=== PATIENT | male | born 1980 | race Caucasian/White ===

== ENCOUNTER 2022-09-22 13:34 | Inpatient (IN) | payer MEDICAID, SELFPAY ==
[2022-09-22 13:35] VITALS: BP 119/88; PULSE 78; RESP 16; TEMP 37; O2SAT 98; BMI 31.5
--- NOTE | 2022-09-22 14:20 | CM.ED ---
ANDREA Note Referral Source: Case Find Referral Reason: RAFFAELE MENDEZ met with patient and introduced herself and role as [facility] Natural Resources Specialist. SW inquired about patient's desire for the detox program as well as his knowledge of the program. Patient reported he was encouraged to come to our facility by his counselor to detox from alcohol and reported his last drink was earlier in the day. SW reviewed rules of the [facility] program including personal items being locked up and no visitors permitted. ANDREA stated he would be in the detox program for about three days and would meet with Azam the addiction therapist to discuss aftercare planning. ANDREA also explained he would be signing a contract with his nurse reviewing and agreeing to the rules of the detox program. Patient stated he understood and agreed to rules, explaining he would do anything he needed to do to get help. No other needs voiced at this time. ANDREA remains available if other needs arise. ANDREA informed Azam of the new [facility] patient. Plan: RAFFAELE Wells MSW, ADELA
[2022-09-22 14:35] VITALS: RESP 15
--- NOTE | 2022-09-22 14:36 | EX.ED.SAOD ---
HPI History of Present Illness Chief Complaint: Substance Abuse Narrative Narrative: 42-year-old male presenting for alcohol detox. He states he has been in recovery from alcohol for several months. [facility] He states he saw them today and they actually drove him here to [place] for detox from alcohol. Patient states that about 2 weeks ago he was having an anxiety attack and ran downstairs where he was living and nobody was home. He states he drove himself directly to the store and bought beer. He states that he has been drinking about 40-60 beers daily. He states he is not sleeping very much and he has a history of insomnia. He states he supposed to take Seroquel for this. He has Ativan as needed as needed. He also takes Paxil. Patient states that he does have history of withdrawal symptoms as well as withdrawal seizure. He currently is stating that he is withdrawing but he states he is hungry and thirsty. [facility] Medical History (Updated 09/22/22 @ 16:33 by Jeannie Reinoso) Anxiety Depression Seizures Smoker Umbilical hernia Home Medications lorazepam 2 mg tablet 2 mg PO DAILY PRN PRN mood 09/22/22 [History Last Taken Unknown] paroxetine HCl 30 mg tablet 30 mg PO DAILY mood 09/22/22 [History Last Taken Unknown] quetiapine 100 mg tablet 100 mg PO QHS sleep 09/22/22 [History Last Taken Unknown] Allergy/AdvReac Type Severity Reaction Status Date / Time No Known Allergies Allergy Verified 09/22/22 13:38 Social History Smoking Status: Current every day smoker tobacco type: cigarettes ROS ROS ED Constitutional Constitutional ED: Denies chills, fever(s) or sweats Eyes Eyes: Denies blurry vision or change in vision ENT ENT ED: Denies ear pain or sore throat Cardiovascular Cardiovascular: Denies chest pain, palpitations or racing heartbeat Respiratory/Chest Respiratory/Chest: Denies cough, dyspnea or sputum Gastrointestinal Gastrointestinal: Denies abdominal pain, constipation, diarrhea, nausea or vomiting Genitourinary Genitourinary ED: Denies dysuria, hematuria or urinary frequency Musculoskeletal Musculoskeletal: Denies arthralgias, myalgias or neck pain Integumentary Denies abscess, Abrasions or rash Neurologic Neurologic: Denies headache(s), paresthesias or weakness Psychiatric Psychiatric: Reports anxiety; Denies depression, suicidal ideation or suicidal thoughts Endocrine Endocrinology: Denies polydipsia or polyuria EXAM Physical Exam Const Vital Signs: 09/22/22 13:35 09/22/22 14:35 Temperature 98.6 F Temperature Source Temporal Pulse Rate 78 Respiratory Rate 16 15 Blood Pressure 119/88 H Blood Pressure Mean 98 Pulse Ox 98 Oxygen Delivery Method Room Air Positive well nourished General Appearance ED: NAD; Negative for pallor HEENT Reports moist mucous membranes atraumatic Eyes PERRL and EOMs intact bilaterally Lymph Lymphatic: no lymphadenopathy noted Chest Wall palpation of chest normal Resp normal respiratory effort and clear to auscultation bilaterally GI soft to palpation and non-tender Auscultation: hyperactive bowel sounds Neuro oriented x3 and CN's II-XII intact bilaterally Sensorium / Orientation: alert Speech: speech normal Psych mental status grossly normal and thought process normal Skin General Skin Exam: Negative for jaundice or pallor MDM MDM MDM Narrative Medical decision making narrative: Patient presenting for detox from alcohol. Last drink a couple of hours ago. He reports 40-50 beers daily. Clearance blood work was obtained and his CBC is unremarkable. Renal function electrolytes are normal. LFTs unremarkable with exception of AST of 84. EtOH was significant elevated at 301. Patient states he was subjectively feeling like he was withdrawing so was given 1 mg of Ativan but his heart rate is normal at 78 his blood pressure is 119/88. Hospitalist did add a magnesium and a phosphorus which were normal. Urine drug screen negative. Patient discussed with hospitalist for admission. Impression: 1. EtOH abuse 2. Presentation for detox from alcohol Lab Data Attestation: I reviewed the patient's lab results. Labs: Laboratory Results - last 24 hr 09/22/22 09/22/22 09/22/22 14:28 14:28 14:28 WBC 6.8 RBC 4.51 L Hgb 14.8 Hct 44.2 MCV 98.0 H MCH 32.8 H MCHC 33.5 RDW Std Deviation 50.3 H RDW Coeff of Rene 13.9 Plt Count TNP MPV 12.1 H Immature Gran % (Auto) 0.400 Neut % (Auto) 63.1 Lymph % (Auto) 27.2 [place] % (Auto) 7.5 Eos % (Auto) 1.5 Baso % (Auto) 0.3 Absolute Neuts (auto) 4.3 Absolute Lymphs (auto) 1.86 Nucleated RBC % 0 Platelet Estimate MOD DEC Sodium 143 Potassium 4.5 Chloride 110 H Carbon Dioxide 25.0 Anion Gap 8 BUN 6 L Creatinine 0.60 L Estim Creat Clear Calc 162.22 Est GFR (MDRD) Af Amer 188 Est GFR (MDRD) Non-Af 155 BUN/Creatinine Ratio 10.0 Glucose 87 Calcium 8.2 L Phosphorus Magnesium Total Bilirubin 0.40 AST 84 H ALT 46 Alkaline Phosphatase 64 Total Protein 7.3 Albumin 3.6 Globulin 3.7 Albumin/Globulin Ratio 1.0 Ethyl Alcohol 301.0 H* 09/22/22 09/22/22 14:28 14:28 WBC RBC Hgb Hct MCV MCH MCHC RDW Std Deviation RDW Coeff of Rene Plt Count MPV Immature Gran % (Auto) Neut % (Auto) Lymph % (Auto) [place] % (Auto) Eos % (Auto) Baso % (Auto) Absolute Neuts (auto) Absolute Lymphs (auto) Nucleated RBC % Platelet Estimate Sodium Potassium Chloride Carbon Dioxide Anion Gap BUN Creatinine Estim Creat Clear Calc Est GFR (MDRD) Af Amer Est GFR (MDRD) Non-Af BUN/Creatinine Ratio Glucose Calcium Phosphorus 3.1 Magnesium 2.1 Total Bilirubin AST ALT Alkaline Phosphatase Total Protein Albumin Globulin Albumin/Globulin Ratio Ethyl Alcohol Discharge Plan Triage Chief Complaint: Substance Abuse ED Provider: Glenn Carpenter Dx/Rx/DC Orders Primary Care Provider: Care Physician,No Primary
[2022-09-22 14:41] LABS: Absolute Lymphocyte Count 1.86 X10^3/uL (0.83-4.51); Absolute Neutrophil Count 4.3 X10^3/uL (2.0-7.7); Basophil# 0.02 X10^3/uL; Basophil% 0.3 % (0-1); Eosinophils% 1.5 % (0-5); Hematocrit 44.2 % (40-54); Hemoglobin 14.8 g/dL (13.0-16.5); Lymphocyte # 1.86 X10^3/ul (0.83-4.51); Lymphocyte % 27.2 % (19-41); Mean Corp Hgb Conc 33.5 g/dL (32-36); Mean Corpuscular Hgb 32.8 pg (27.0-32.0); Mean Platelet Vol. 12.1 fl (6.2-12.0); Monocyte# 0.51 X10^3/uL; Monocyte% 7.5 % (0-10); NRBC Flagged by Analyzer 0 % (0-5); Neutrophil # 4.32 X10^3/uL (2.7-7.7); Neutrophil % 63.1 % (47-70); POSITIVE COUNT YES; RBC Distribution Width CV 13.9 % (11.6-14.6); RBC Distribution Width SD 50.3 fl (35.1-43.9); Red Blood Count 4.51 M/mm3 (4.6-6.2); White Blood Count 6.8 K/mm3 (4.4-11.0)
[2022-09-22 14:55] LABS: AST(SGOT) 84 U/L (15-37); Alanine Aminotransfer ALT/SGPT 46 U/L (16-61); Albumin, Serum 3.6 g/dL (3.2-5.0); Alkaline Phosphatase 64 U/L (45-117); Anion Gap 8 (5-15); BUN 6 mg/dL (7-18); Calcium,Total 8.2 mg/dL (8.5-10.1); Chloride 110 mmol/L (98-107); EST Glomerular Filtration Rate 155 mL/min (>60); Est Glom Filt Rate - Afr Amer 188 mL/min (>60); Estimated Creatinine Clearance 162.22 ml/min; Globulin 3.7 g/dL (2.2-4.2); Glucose 87 mg/dL (74-106); Magnesium 2.1 mg/dL (1.6-2.6); Potassium 4.5 mmol/L (3.5-5.1); Protein, Total 7.3 g/dL (6.4-8.2); Sodium Level 143 mmol/L (136-145)
[2022-09-22] MEDS: LORazepam 2 MG/ML Syringe 1 MG IV (15:08)
[2022-09-22 15:10] LABS: Differential Indicated SCAN CRITERIA MET
[2022-09-22 15:11] LABS: Platelet Estimate MOD DEC (ADEQ)
--- NOTE | 2022-09-22 15:37 | HP.PCM.HOS_ITS ---
HPI - General General Date of Admission: 09/22/22 Date of Service: 09/22/22 Chief Complaint: EtOH abuse with EtOH withdrawal history of DT/seizures HPI Narrative The patient is a 42 y/o M w/ PMHx: Anxiety and Depression, Obesity, Insomnia, Hx prior EtOH associated withdrawal seizures, Tobacco use who presents to the [facility] on 09/22/22 w/ desire for alcohol detoxification with history of 7 months of sobriety prior however he had increased anxiety over the last 2 to 3 weeks with notable panic attacks prompting him to start drinking again with at least 30-40 beers daily with desire to again achieve his sobriety prompting ED evaluation for program involvement. He notes his last drink was just prior to ED arrival. He currently denies any specific withdrawal symptoms including nausea, tremors, agitation or tactile disturbances. He does have a severe history of alcohol withdrawal seizures he notes. Work-up in the ED included T98.6, heart rate 78, BP one 119/88, respiratory rate 16, 98% on room air, CBC with WC 6.8, and 114.8, platelet count not provided per lab without marked shift, CMP with chloride 110, BUN/creat 6/0.60, magnesium 2.1, AST/ALT 84/46 otherwise not marked appearing, ethyl alcohol level 301. In the ED just prior to admission patient was found smoking in his room which was discussed at length and patient now understands that he cannot smoke in the hospital and is willing to follow these requirements to continue plan for safe sobriety. PFSH Medical History Alcohol abuse Anxiety and depression Obesity Tobacco use Home Medications lorazepam 2 mg tablet 2 mg PO DAILY PRN PRN mood 09/22/22 [History Last Taken Unknown] paroxetine HCl 30 mg tablet 30 mg PO DAILY mood 09/22/22 [History Last Taken Unknown] quetiapine 100 mg tablet 100 mg PO QHS sleep 09/22/22 [History Last Taken Unknown] Allergy/AdvReac Type Severity Reaction Status Date / Time No Known Allergies Allergy Verified 09/22/22 13:38 Family History (Updated 09/22/22 @ 19:[address] Gin Vail MD) Mother Anxiety and depression Father Alcohol abuse Prostate cancer Surgical History (Updated 09/22/22 @ 19:[address] Gin Vail MD) History of dental surgery Hx of umbilical hernia repair Social History (Updated 09/22/22 @ 19:[address] Gin Vail MD) Smoking Status: Current every day smoker tobacco type: cigarettes Smoking packs per day: 1 Smoking cigarettes per day: 20.0 alcohol intake: current alcohol intake frequency: 3 or more drinks per day Alcohol type: beer details: Drinking currently 30-40 beers daily. substance use type: does not use ROS ROS Narrative Admission Review of Systems: CONSTITUTIONAL: No weight loss, fever, chills, + weakness or fatigue. HEENT: Eyes: No visual loss, blurred vision, double vision or yellow sclerae. Ears, Nose, Throat: No hearing loss, sneezing, congestion, runny nose or sore throat. SKIN: No rash or itching, lesions, wounds. CARDIOVASCULAR: No chest pain, chest pressure or chest discomfort, palpitations, edema, orthopnea, syncopal events. RESPIRATORY: No shortness of breath, cough or sputum, wheezing, hemoptysis. GASTROINTESTINAL: No anorexia, nausea, vomiting or diarrhea, abdominal pain, melena, BRBPR. GENITOURINARY: No dysuria, frequency, urgency or retention. NEUROLOGICAL: + Hx EtOH withdrawal seizures. No headache, dizziness, syncope, paralysis, ataxia, numbness or tingling in the extremities, focal weakness, change in bowel or bladder control. MUSCULOSKELETAL: + muscle, back pain, joint pain or stiffness. HEMATOLOGIC: No anemia, bleeding or bruising. LYMPHATICS: No enlarged nodes. No history of splenectomy. PSYCHIATRIC: + history of depression or anxiety. ENDOCRINOLOGIC: No reports of sweating, cold or heat intolerance. No polyuria or polydipsia. ALLERGIES: No history of asthma, hives, eczema or rhinitis. Vital Signs Vital Signs Vital Signs: 09/22/22 13:35 09/22/22 14:35 Temperature 98.6 F Temperature Source Temporal Pulse Rate 78 Respiratory Rate 16 15 Blood Pressure 119/88 H Blood Pressure Mean 98 Pulse Ox 98 Oxygen Delivery Method Room Air Weight Weight: 220 lb Body Mass Index (BMI) 31.5 Physical Exam Narrative Physical Examination: General: Awake, alert, oriented x 3 and cooperative, seated upright in the ED bed, mildly fatigued but completely interactive and oriented despite alcohol level, currently does not demonstrate any withdrawal symptoms but does have severe history of withdrawal seizures. Skin: Normal color, normal turgor, no icterus, no cyanosis except occasional staged ecchymoses/. HEENT: AT/NC, EOMI, PERRLA, mildly dry MM, no carotid bruits or JVD noted. Lungs: Mild diminished, greater bases, appropriate effort, no rales, ronchi or wheezing. Heart: Currently regular rate and rhythm; no gallop, rub audible. Abdomen: Soft, obese, NTTP, ND, normal BS, no marked HSM. Extremities: No cyanosis, clubbing, or edema. Neurological: Patient awake, alert, oriented as noted, cognitive function intact; pupils equally reactive to light and accommodation, cranial nerves II- XII grossly normal, moving all 4 extremities, no focal deficits, strength preserved. Psychiatric: Affect appears fatigued, no acute evidence of depressive or anxiety feelings but does have underlying history. Results Lab / Micro Data Result Diagrams: 09/22/22 14:28 09/22/22 14:28 Labs: Laboratory Results - last 24 hr 09/22/22 14:28: WBC 6.8, RBC 4.51 L, Hgb 14.8, Hct 44.2, MCV 98.0 H, MCH 32.8 H, MCHC 33.5, RDW Std Deviation 50.3 H, RDW Coeff of Rene 13.9, Plt Count TNP, MPV 12.1 H, Immature Gran % (Auto) 0.400, Neut % (Auto) 63.1, Lymph % (Auto) 27.2, [place] % (Auto) 7.5, Eos % (Auto) 1.5, Baso % (Auto) 0.3, Absolute Neuts (auto) 4.3, Absolute Lymphs (auto) 1.86, Nucleated RBC % 0, Platelet Estimate MOD DEC 09/22/22 14:28: Sodium 143, Potassium 4.5, Chloride 110 H, Carbon Dioxide 25.0, Anion Gap 8, BUN 6 L, Creatinine 0.60 L, Estim Creat Clear Calc 162.22, Est GFR (MDRD) Af Amer 188, Est GFR (MDRD) Non-Af 155, BUN/Creatinine Ratio 10.0, Glucose 87, Calcium 8.2 L, Total Bilirubin 0.40, AST 84 H, ALT 46, Alkaline Phosphatase 64, Total Protein 7.3, Albumin 3.6, Globulin 3.7, Albumin/Globulin Ratio 1.0 09/22/22 14:28: Ethyl Alcohol 301.0 H* 09/22/22 14:28: Magnesium 2.1 Assessment & Plan Assessment/Plan (1) Desire for detoxification: PLAN: Plan The patient is a 42 y/o M w/ PMHx: Anxiety and Depression, Obesity, Insomnia, Hx prior EtOH associated withdrawal seizures, Tobacco use who presents to the [facility] on 09/22/22 w/ desire for alcohol detoxification with history of 7 months of sobriety prior however he had increased anxiety over the last 2 to 3 weeks with notable panic attacks prompting him to start drinking again with at least 30-40 beers daily with desire to again achieve his sobriety prompting ED evaluation for program involvement. #1. Acute EtOH Abuse with Detoxification Request with Hx EtOH associated withdrawal seizures: Will admit to [facility], routine labs obtained in the ED. Given interest in sobriety, will initiate and continue on protocol with taper course of Phenobarbital, scheduled gabapentin for seizure prophylaxis, as needed Catapres, Bentyl, Vistaril, IV fluids, IV antiemetics, Tylenol as needed for pain. Will consult Case management for assistance for transition to next level of rehabilitation care. Mag normal level, phos pending. Maintain on CIWA protocol concurrently. #2. Anxiety and depression, history of panic attacks: Certainly would benefit from more aggressive counseling and therapy given this is associated with his alcohol abuse, we will continue patient home psychiatric regimen once clarified. #3. Tobacco Abuse: Encouraged cessation, inpatient consultation per RT, NR if desired. #4. Obesity: Weight loss and lifestyle changes encouraged. #5. DVT prophylaxis: Low risk, encourage ambulation. Admission Evaluation Time spent evaluating chart, patient history, patient evaluation, care planning and discussion with specialists: 60 minutes. Charges/Coding Visit Charges Inpatient E&M: 94113 Init Hosp L2
[2022-09-22 15:55] LABS: Amphetamine Urine VISTA NEGATIVE (<1000 ng/mL); Barbiturate Urine VISTA NEGATIVE (< 200 ng/mL); Benzodiazepine Urine VISTA NEGATIVE (< 200 ng/mL); Cocaine Urine VISTA NEGATIVE (< 300 ng/mL); Ecstacy Urine VISTA NEGATIVE (< 500 ng/mL); Methadone Urine VISTA NEGATIVE (< 300 ng/mL); PCP Urine VISTA NEGATIVE (< 25 ng/mL); THC Urine VISTA NEGATIVE (< 50 ng/mL); Vista UDS pH Range 6
[2022-09-22 16:03] VITALS: O2SAT 94
--- NOTE | 2022-09-22 16:05 | ED.RN ---
RN WALKING PAST BED 1'S ROOM, RN SMELLED SMOKE. RN DID NOT SEE PATIENT IN BED. CHARGE NURSE AND BUD RN NOTIFIED OF SMELL. CHARGE NURSE AND BUD RN ENTERED PATIENTS ROOM WHERE THEY FOUND PATIENT BACK IN BED SMOKING. PATIENT THEN INFORMED HE CANNOT BE SMOKING. 2 PACKS OF CIGARETTES, DEPENDENCY PROGRAM DIRECTOR, AND EMESIS BAG COLLECTED WITH CIGARETTE BURNING IN BAG.
[2022-09-22 16:24] VITALS: BMI 31.5
[2022-09-22 16:44] LABS: Phosphorus 3.1 mg/dL (2.5-4.9)
[2022-09-22 16:59] VITALS: O2SAT 99
[2022-09-22 17:18] VITALS: BP 117/64; PULSE 82; RESP 16; TEMP 37; O2SAT 99
--- NOTE | 2022-09-22 17:19 | NURSING ---
MED SURG ALCOHOL DETOX WHITE
[2022-09-22] MEDS: Phenobarbital 32.4 MG Tablet 64.8 MG PO ×2 (18:41→22:30)
[2022-09-22] MEDS: Lactated Ringers 1,000 ML 125 ML IV (20:00)
[2022-09-22] MEDS: 0.9% Saline Lock 10 ML Syringe IV (20:00)
[2022-09-22] MEDS: hydrOXYzine PAM 25 MG Capsule 50 MG PO (20:02)
[2022-09-22 22:20] VITALS: BP 99/53; PULSE 66; RESP 16; TEMP 36.7; O2SAT 95
[2022-09-22] MEDS: Gabapentin 300 MG Capsule PO (22:30)
[2022-09-23] MEDS: Phenobarbital 32.4 MG Tablet 64.8 MG PO ×6 (02:19→22:27)
[2022-09-23 02:20] VITALS: BP 111/80; PULSE 57; RESP 16; TEMP 36.4; O2SAT 94
[2022-09-23] MEDS: hydrOXYzine PAM 25 MG Capsule 50 MG PO ×4 (05:06→22:27)
[2022-09-23] MEDS: Ibuprofen 600 MG Tablet PO (05:07)
[2022-09-23 05:21] VITALS: BP 123/77; PULSE 58; RESP 16; TEMP 36.6; O2SAT 96
--- NOTE | 2022-09-23 08:27 | PCM.PN.HOSP ---
Subjective Subjective Follow-up for acute binge alcohol drinking for more than 1 week, nonstop. Objective Data Objective Data Vital Signs: Vital Signs Temp Pulse Resp BP Pulse Ox O2 Del Method 97.8 F 58 L 16 123/77 H 96 Room Air 09/23/22 05:21 09/23/22 05:21 09/23/22 05:21 09/23/22 05:21 09/23/22 05:21 09/23/22 05:21 Oxygen Delivery Method Room Air Weight: 220 lb Body Mass Index (BMI) 31.5 Intake & Output: Intake and Output for Last 24 Hours 09/21/22 09/22/22 09/23/22 23:59 23:59 23:59 Intake Total 1000 / 1000 Balance 1000 / 1000 Lab / Micro Data Result Diagrams: 09/22/22 14:28 09/22/22 14:28 Labs: Laboratory Results - last 24 hr 09/22/22 14:28: WBC 6.8, RBC 4.51 L, Hgb 14.8, Hct 44.2, MCV 98.0 H, MCH 32.8 H, MCHC 33.5, RDW Std Deviation 50.3 H, RDW Coeff of Rene 13.9, Plt Count TNP, MPV 12.1 H, Immature Gran % (Auto) 0.400, Neut % (Auto) 63.1, Lymph % (Auto) 27.2, [place] % (Auto) 7.5, Eos % (Auto) 1.5, Baso % (Auto) 0.3, Absolute Neuts (auto) 4.3, Absolute Lymphs (auto) 1.86, Nucleated RBC % 0, Platelet Estimate MOD DEC 09/22/22 14:28: Sodium 143, Potassium 4.5, Chloride 110 H, Carbon Dioxide 25.0, Anion Gap 8, BUN 6 L, Creatinine 0.60 L, Estim Creat Clear Calc 162.22, Est GFR (MDRD) Af Amer 188, Est GFR (MDRD) Non-Af 155, BUN/Creatinine Ratio 10.0, Glucose 87, Calcium 8.2 L, Total Bilirubin 0.40, AST 84 H, ALT 46, Alkaline Phosphatase 64, Total Protein 7.3, Albumin 3.6, Globulin 3.7, Albumin/Globulin Ratio 1.0 09/22/22 14:28: Ethyl Alcohol 301.0 H* 09/22/22 14:28: Magnesium 2.1 09/22/22 14:28: Phosphorus 3.1 09/22/22 15:39: Urine Opiates Screen NEGATIVE, Urine Methadone Screen NEGATIVE, Ur Barbiturates Screen NEGATIVE, Ur Phencyclidine Scrn NEGATIVE, Ur Amphetamines Screen NEGATIVE, MDMA (Ecstasy) Screen NEGATIVE, U Benzodiazepines Scrn NEGATIVE, Urine Cocaine Screen NEGATIVE, U Cannabinoids Screen NEGATIVE, Ur Drug Screen Comment Physical Exam Narrative Patient is stated he has been drinking alcohol, beer 10 to 15% alcohol content continuously for more than 1 week. He felt nauseated, retching and tries to throw up. He put his finger down to throw. He denies history of chronic alcohol use but he felt upset therefore he started drinking alcohol. Patient has history of anxiety depression and panic attack. In 2014 patient tried to overdose with multiple medication as suicidal attempt. Denies any recent suicidal ideation or plan. Physical exam General: Alert, Oriented x3, Cooperative HEENT: Atraumatic, PERRLA, EOMI, Normocephalic Oral: No Gingival or Mucosal Lesions/ Ulcerations Neck: Supple, No JVD, Negative Carotid Bruits Lungs: Air entry diminished in bilateral lung bases. No crepitation/rhonchi Cardiovascular: Regular rate, Regular Rhythm, Normal S1, Normal S2, No murmurs Abdomen: Bowel Sounds Present, Soft, Non Tender, Non-Distended : No renal angle tenderness. No suprapubic tenderness. Extremities: No edema, Capillary Refill Less than 3 Seconds Skin: No rashes, No breakdown Musculoskeletal: No Tenderness to Palpation of Joints or Extremities Neurological: Cranial nerves II-XII grossly intact, DTR 2+/4 and Symmetrical, Neuro grossly intact Psych/Mental Status: Flat affect, looks depressed. Assessment & Plan Assessment/Plan (1) Desire for detoxification: PLAN: Plan The patient is a 42 y/o M history of 7 months of sobriety prior however he had increased anxiety over the last 2 to 3 weeks with notable panic attacks prompting him to start drinking again with at least 30-40 beers daily with desire to again achieve his sobriety prompting ED evaluation for program involvement. #1. Acute binge drinking alcohol for more than 1 week with history of alcohol withdrawal seizure: Patient drinks alcohol intermittently but had dosage in the past. He expressed concern about phenobarbital wanted Ativan but I explained phenobarbitone is superior than Ativan for better control of anxiety restlessness for prolonged antianxiety and sedative effect. Patient is scheduled gabapentin teen for seizure prophylaxis. Patient on multiple adjunctive medications as needed for control of symptoms. CIWA monitoring. Serum magnesium and phosphorus normal. Potassium 4.5. #2. Anxiety and depression, history of panic attacks or suicidal attempt in the past: Patient takes Seroquel and Paxil at home. Continued. Trazodone discontinued. 180 talent acquisition operations manager consult for alcohol rehab and discharge planning. #3. Tobacco Abuse: Encouraged cessation, inpatient consultation #4. Obesity: Weight loss and lifestyle changes encouraged. #5. DVT prophylaxis: Low risk, encourage ambulation. Charges/Coding Visit Charges Inpatient E&M: 69409 Subs Hosp L2
[2022-09-23 08:36] VITALS: BP 130/77; PULSE 57; RESP 16; TEMP 36.6; O2SAT 96
[2022-09-23 08:43] VITALS: PULSE 55
[2022-09-23] MEDS: Thiamine Hydrochloride 100 MG Tablet PO (08:57)
[2022-09-23] MEDS: Folic Acid 1 MG Tablet PO (08:58)
[2022-09-23] MEDS: Paroxetine 20 MG Tablet 30 MG PO (08:59)
--- NOTE | 2022-09-23 11:01 | ADDICTION ---
This insurance underwriter met with PT to conduct ASAM, MSE, AUDIT assessments and to plan for d/c. PT A+Ox4 and participated actively. All assessments completed and placed in PT's chart. PT plans to f/u with [facility] for inpatient treatment services. They will provide transportation post d/c from [facility].
[2022-09-23 14:22] VITALS: BP 144/92; PULSE 61; RESP 16; TEMP 36.6; O2SAT 96
[2022-09-23] MEDS: Gabapentin 300 MG Capsule PO (14:33)
[2022-09-23 22:00] VITALS: BP 127/95; PULSE 56; RESP 16; TEMP 36.9; O2SAT 97
[2022-09-23] MEDS: QUEtiapine 100 MG Tablet PO (22:27)
[2022-09-24] VITALS (8 sets, daily range): BP systolic 116–133; BP diastolic 80–91; PULSE 55–86; RESP 16–18; TEMP 36.5–36.9; O2SAT 96–98
[2022-09-24] MEDS: Phenobarbital 32.4 MG Tablet 64.8 MG PO ×6 (02:53→23:29)
[2022-09-24] MEDS: hydrOXYzine PAM 25 MG Capsule 50 MG PO ×3 (06:50→23:29)
[2022-09-24] MEDS: Thiamine Hydrochloride 100 MG Tablet PO (08:48)
[2022-09-24] MEDS: Paroxetine 20 MG Tablet 30 MG PO (08:49)
[2022-09-24] MEDS: Folic Acid 1 MG Tablet PO (08:49)
--- NOTE | 2022-09-24 09:03 | PN.HOSP_ITS ---
Subjective Subjective Follow-up for acute alcohol withdrawal. Overall patient feels better in regards to tremor, restlessness, anxiety. Sometimes muscle pain and cramps. Objective Data Objective Data Vital Signs: Vital Signs Temp Pulse Resp BP Pulse Ox O2 Del Method 98.2 F 56 L 16 128/91 H 97 Room Air 09/24/22 06:49 09/24/22 06:49 09/24/22 06:49 09/24/22 06:49 09/24/22 07:08 09/24/22 07:08 Oxygen Delivery Method Room Air Weight: 220 lb Body Mass Index (BMI) 31.5 Intake & Output: Intake and Output for Last 24 Hours 09/22/22 09/23/22 09/24/22 23:59 23:59 23:59 Intake Total 1000 / 1000 Output Total 625 / 625 Balance 375 / 375 Lab / Micro Data Result Diagrams: 09/22/22 14:28 09/22/22 14:28 Physical Exam Narrative Patient is stated he has been drinking alcohol, beer 10 to 15% alcohol content continuously for more than 1 week. He felt nauseated, retching and tries to throw up. He put his finger down to throw. He denies history of chronic alcohol use but he felt upset therefore he started drinking alcohol. Patient has history of anxiety depression and panic attack. In 2014 patient tried to overdose with multiple medication as suicidal attempt. Denies any recent suicidal ideation or plan. Physical exam General: Alert, Oriented x3, Cooperative HEENT: Atraumatic, PERRLA, EOMI, Normocephalic Oral: Oral mucosa moist. No Gingival or Mucosal Lesions/ Ulcerations Neck: Supple, No JVD, Negative Carotid Bruits Lungs: Air entry diminished in bilateral lung bases. No crepitation/rhonchi Cardiovascular: Regular rate, Regular Rhythm, Normal S1, Normal S2, No murmurs Abdomen: Bowel Sounds Present, Soft, Non Tender, Non-Distended : No renal angle tenderness. No suprapubic tenderness. Extremities: No edema, Capillary Refill Less than 3 Seconds Skin: No rashes, No breakdown Musculoskeletal: No Tenderness to Palpation of Joints or Extremities Neurological: Cranial nerves II-XII grossly intact, DTR 2+/4 and Symmetrical, Neuro grossly intact Psych/Mental Status: Flat affect, looks depressed. Assessment & Plan Assessment/Plan (1) Desire for detoxification: PLAN: Plan The patient is a 42 y/o M history of 7 months of sobriety prior however he had increased anxiety over the last 2 to 3 weeks with notable panic attacks prompting him to start drinking again with at least 30-40 beers daily with olga giselle to again achieve his sobriety prompting ED evaluation for program involvement. #1. Acute binge drinking alcohol for more than 1 week with history of alcohol withdrawal seizure: Patient drinks alcohol intermittently but had dosage in the past. He expressed concern about phenobarbital wanted Ativan but I explained phenobarbitone is superior than Ativan for better control of anxiety restlessn ess for prolonged antianxiety and sedative effect. Patient is scheduled gabapentin teen for seizure prophylaxis. Patient on multiple adjunctive medications as needed for control of symptoms. CIWA monitoring. Serum magnesium and phosphorus normal. Potassium 4.5. 09/24: Patient feels overall better with phenobarbitone. He is happy with continuation of phenobarbital. Denies hallucination, delusions or seizure. #2. Anxiety and depression, history of panic attacks or suicidal attempt in the past: Patient takes Seroquel and Paxil at home. Continued. Trazodone discontinued. 180 systems integration manager consult for alcohol rehab and discharge planning. #3. Tobacco Abuse: Encouraged cessation, inpatient consultation #4. Obesity: Weight loss and lifestyle changes encouraged. #5. DVT prophylaxis: Low risk, encourage ambulation. Charges/Coding Visit Charges Inpatient E&M: 55495 Subs Hosp L2
--- NOTE | 2022-09-24 13:26 | CHAPLAIN ---
Type of Pastoral Visit _x__ Initial Visit ___ Follow-up Visit ___ On-call Visit ___ General Patient Visit ___ Spiritual Assessment ___ Family Conference ___ Bereavement ___ Rapid Response ___ Code Blue ___ Other (describe below) Pastoral Care Referral From _x__ Patient ___ Family ___ Nurse ___ Physician ___ Motel Front Desk Clerk ___ Fraud Examiner ___ Other (describe below) Sacrament/Intervention _x__ Active listening ___ Anointing ___ Yazdanism ___ Bereavement ___ Communion _x__ Ximena exploration ___ _x__ Life review _x__ Prayer ___ Reconciliation ___ Sacrament of Sick _x__ Supportive presence ___ Wedding ___ Other (describe below) Pastoral Comments patient is welcoming to visit and is eager to talk; pt states that I was just reflecting on my life and what changes I need to make and you walked in; pt proceeded to give descriptive expression of his life, his struggles for sobriety, and feelings; pt has a supportive mother; pt says he has tried several methods of recovery but states that these have not been effective; pt puts much blame and guilt on self; pt expresses where he is in his spiritual thinking; pt gives appreciation for this entertainment usher taking much time to listen; pt welcomed prayers; pt would welcome future visits if possible
[2022-09-24 14:15] LABS: Anion Gap 2 (5-15); BUN 11 mg/dL (7-18); BUN/Creat Ratio 12.9 RATIO (10-20); Calcium,Total 8.9 mg/dL (8.5-10.1); Chloride 108 mmol/L (98-107); Creatinine, Serum 0.85 mg/dL (0.70-1.30); EST Glomerular Filtration Rate 104 mL/min (>60); Est Glom Filt Rate - Afr Amer 126 mL/min (>60); Estimated Creatinine Clearance 114.51 ml/min; Glucose 94 mg/dL (74-106); Phosphorus 2.9 mg/dL (2.5-4.9); Potassium 4.5 mmol/L (3.5-5.1); Sodium Level 138 mmol/L (136-145)
[2022-09-24] MEDS: Ondansetron 8 MG Tablet PO (14:25)
[2022-09-24] MEDS: Gabapentin 300 MG Capsule PO (14:25)
[2022-09-24] MEDS: Acetaminophen 325 MG Tablet 650 MG PO ×2 (14:25→20:29)
[2022-09-24] MEDS: Dicyclomine 10 MG Capsule 20 MG PO (14:25)
[2022-09-24] MEDS: QUEtiapine 100 MG Tablet PO (23:29)
[2022-09-25 02:20] VITALS: BP 119/72; PULSE 52; RESP 16; TEMP 36.8; O2SAT 99
--- NOTE | 2022-09-25 02:23 | EKG12_ITS ---
Test Reason : CHEST PAIN Blood Pressure : / mmHG Vent. Rate : 048 BPM Atrial Rate : 048 BPM P-R Int : 202 ms QRS Dur : 108 ms QT Int : 450 ms P-R-T Axes : 059 005 013 degrees QTc Int : 402 ms Sinus bradycardia Otherwise normal ECG Confirmed by NICOLE BROWN, IZABELLA ([id number]), field map editor ANA DONOVAN ([id number]) on 09/30/2022 10:15:45 AM Referred By: LISA Confirmed By:IZABELLA RIVERA MD
[2022-09-25 03:30] VITALS: BP 119/86; PULSE 51; RESP 16; TEMP 36.6; O2SAT 98
[2022-09-25] MEDS: Phenobarbital 32.4 MG Tablet 64.8 MG PO ×3 (03:35→14:08)
[2022-09-25] MEDS: Gabapentin 300 MG Capsule PO (03:35)
[2022-09-25 03:53] LABS: Troponin-I HS < 3 pg/mL (3.0-78.0)
[2022-09-25 06:18] LABS: Troponin-I HS 4 pg/mL (3.0-78.0)
[2022-09-25 07:30] VITALS: BP 135/78; PULSE 59; RESP 16; TEMP 36.8; O2SAT 97
[2022-09-25 08:23] VITALS: O2SAT 99
[2022-09-25] MEDS: hydrOXYzine PAM 25 MG Capsule 50 MG PO (08:46)
[2022-09-25] MEDS: Paroxetine 20 MG Tablet 30 MG PO (08:47)
[2022-09-25] MEDS: Folic Acid 1 MG Tablet PO (08:47)
[2022-09-25] MEDS: Thiamine Hydrochloride 100 MG Tablet PO (08:47)
[2022-09-25] MEDS: Acetaminophen 325 MG Tablet 650 MG PO (08:57)
[2022-09-25 09:45] LABS: Troponin-I HS 3 pg/mL (3.0-78.0)
--- NOTE | 2022-09-25 10:36 | DCINST_ITS ---
Discharge Instructions Diet Discharge Diet: No restrictions Activity Discharge Activity: Return to Normal Activity Weight Bearing Status: Weight bearing as tolerated Dressing / Incision Call your doctor if you observe: Fever of 101 or Higher, Coldness, Increased Pain, Numbness or Tingling, Change in Color, Inability to urinate, Inability to have a bowel movement, Shortness of breath, Dizziness, Fainting spells, Swelling in the ankles, Chest pain, Prolonged hiccupping, Increased palpitations (irregular heartbeat), Calf discomfort and Uncontrolled pain Follow Up Care Test Results: Test results from this visit will be discussed in further detail at your follow- up appointment, if applicable. Discharge Plan Admission Admit Date/Time: 09/22/22 15:39 Primary Reason for Your Visit: Acute alcohol withdrawal syndrome Attending Provider: Graham Piper Primary Care Provider: Care Physician,Maryam Primary Consulting Providers: Gin [place]ail Discharge Orders/Prescriptions Prescriptions: New thiamine HCl (vitamin B1) [Vitamin B-1] 100 mg Tablet 100 mg PO DAILYCM Qty: 30 0RF nicotine 21 mg/24 hr Patch 24 Hour 21 mg transdermal DAILY Qty: 30 0RF folic acid 1 mg Tablet 1 mg PO BREAKFAST Qty: 30 0RF Continued quetiapine 100 mg tablet 100 mg PO QHS lorazepam 2 mg tablet 2 mg PO DAILY PRN PRN (Reason: mood) paroxetine HCl 30 mg tablet 30 mg PO DAILY Referrals / Follow Up: Care Physician,Maryam Primary [Primary Care Provider] - NOT,DEFINED [Non-Staff] - Disposition Disposition (needs filled in before D/C Order can be placed): Home, Self Care
--- NOTE | 2022-09-25 10:40 | DS.PCM_ITS ---
Providers Date of Admission: 09/22/22 Date of Discharge: 09/25/22 Primary Care Physician: No Primary Care Phys Reason For Visit: ETOH ABUSE/WITHDRAWAL Diagnosis Discharge Diagnosis (1) Desire for detoxification: Status: Acute Plan The patient is a 42 y/o M history of 7 months of sobriety prior however he had increased anxiety over the last 2 to 3 weeks with notable panic attacks prompting him to start drinking again with at least 30-40 beers daily with desire to again achieve his sobriety prompting ED evaluation for program involvement. #1. Acute binge drinking alcohol for more than 1 week with history of alcohol withdrawal seizure: Patient drinks alcohol intermittently but had dosage in the past. He expressed concern about phenobarbital wanted Ativan but I explained phenobarbitone is superior than Ativan for better control of anxiety restlessness for prolonged antianxiety and sedative effect. Patient is scheduled gabapentin teen for seizure prophylaxis. Patient on multiple adjunctive medications as needed for control of symptoms. CIWA monitoring. Serum magnesium and phosphorus normal. Potassium 4.5. 09/24: Patient feels overall better with phenobarbitone. He is happy with continuation of phenobarbital. Denies hallucination, delusions or seizure. 09/25: Serum magnesium and phosphorus level normal. Potassium is normal. Patient had panic attack yesterday night and felt like he could not breathe later on he felt sleep. Advised to follow-up with a psychiatrist. #2. Anxiety and depression, history of panic attacks or suicidal attempt in the past: Patient takes Seroquel and Paxil at home. Continued. Trazodone discontinued. 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 #3. Tobacco Abuse: Encouraged cessation, inpatient consultation #4. Obesity: Weight loss and lifestyle changes encouraged. #5. DVT prophylaxis: Low risk, encourage ambulation. Discharge medication reconciliation done. Discharge follow-up instructions completed. Discharge process discussed with the patient and all questions were answered to patient's satisfaction. Total time spent, exact 35 minutes on discharge meds reconciliation, examination, coordination of care with nurses and ancillary staff, review of imaging and blood test and discussion with the patient on follow-up instructions. Medications at Discharge Home Medications lorazepam 2 mg tablet 2 mg PO DAILY PRN PRN mood 09/22/22 paroxetine HCl 30 mg tablet 30 mg PO DAILY mood 09/22/22 quetiapine 100 mg tablet 100 mg PO QHS sleep 09/22/22 folic acid 1 mg tablet 1 mg PO BREAKFAST #30 tabs 09/25/22 nicotine 21 mg/24 hr daily transdermal patch 21 mg transdermal DAILY #30 ea 09/25/22 thiamine HCl (vitamin B1) 100 mg tablet (Vitamin B-1) 100 mg PO DAILYCM #30 tabs 09/25/22 Weight / BMI Weight Weight: 220 lb Body Mass Index (BMI) 31.5 ABG / Lab / Microbiology Data Result Diagrams: 09/22/22 14:28 09/24/22 13:40 Laboratory: Laboratory Results - last 24 hr 09/24/22 13:40: Sodium 138, Potassium 4.5, Chloride 108 H, Carbon Dioxide 28.0, Anion Gap 2 L, BUN 11, Creatinine 0.85, Estim Creat Clear Calc 114.51, Est GFR (MDRD) Af Amer 126, Est GFR (MDRD) Non-Af 104, BUN/Creatinine Ratio 12.9, Glucose 94, Calcium 8.9, Phosphorus 2.9, Magnesium 2.0 09/25/22 03:28: Troponin I High Sens < 3 L 09/25/22 05:27: Troponin I High Sens 4 09/25/22 09:15: Troponin I High Sens 3 D/C Instructions Discharge Diet: No restrictions Weight Bearing Status: Weight bearing as tolerated Call your doctor if you observe: Fever of 101 or Higher, Coldness, Increased Pain, Numbness or Tingling, Change in Color, Inability to urinate, Inability to have a bowel movement, Shortness of breath, Dizziness, Fainting spells, Swelling in the ankles, Chest pain, Prolonged hiccupping, Increased palpitations (irregular heartbeat), Calf discomfort and Uncontrolled pain Meaningful Use Info Meaningful Use Diagnoses (Choose all that apply): None applicable Discharge Plan Admission Admit Date/Time: 09/22/22 15:39 Primary Reason for Your Visit: Acute alcohol withdrawal syndrome Attending Provider: Graham Piper Primary Care Provider: Care Physician,No Primary Consulting Providers: Gin [place] Instructions Additional Instructions / Restrictions: Follow-up psychiatrist within 2 weeks. Discharge Orders/Prescriptions Prescriptions: New thiamine HCl (vitamin B1) [Vitamin B-1] 100 mg Tablet 100 mg PO DAILYCM Qty: 30 0RF nicotine 21 mg/24 hr Patch 24 Hour 21 mg transdermal DAILY Qty: 30 0RF folic acid 1 mg Tablet 1 mg PO BREAKFAST Qty: 30 0RF Continued quetiapine 100 mg tablet 100 mg PO QHS lorazepam 2 mg tablet 2 mg PO DAILY PRN PRN (Reason: mood) paroxetine HCl 30 mg tablet 30 mg PO DAILY Referrals / Follow Up: Care Physician,No Primary [Primary Care Provider] - NOT,DEFINED [Non-Staff] - Disposition Disposition (needs filled in before D/C Order can be placed): Home, Self Care Charges/Coding Visit Charges Inpatient E&M: 51449 Disch Hosp >30min
--- NOTE | 2022-09-25 11:41 | NURSING ---
spoke with [facility] in [place] and inquiring about pt being transported back there. Spoke with both Ann telephonic nurse case manager and then Patsy his counselor. Patsy states that they will try to have someone arrive to get pt around 2:30pm to 3:00pm. Phone number given to nurses station so [facility] staff can call when they arrive and pt can be escorted downstairs to help save on time.
[2022-09-25 15:27] VITALS: BP 129/75; PULSE 70; RESP 15; TEMP 36.4; O2SAT 97
== END 2022-09-25 14:15 | disposition home or self-care (01) | DRG 775 ==
LOC: ED 14:43 → MS2 16:17
PROVIDERS: Student in an Organized Health Care Education/Training Program; Admitting Provider Family Medicine; Emergency Provider Student in an Organized Health Care Education/Training Program; Visit Provider Internal Medicine
DX: F10.10 Alcohol abuse, uncomplicated (principal); E66.9 Obesity, unspecified; F17.210 Nicotine dependence, cigarettes, uncomplicated; F41.9 Anxiety disorder, unspecified; F32.A Depression, unspecified; Z68.31 Body mass index [BMI] 31.0-31.9, adult; Y90.8 Blood alcohol level of 240 mg/100 ml or more
CPT/HCPCS: 36415; 80048; 80053; 80307; 82077; 83735; 84100; 84484; 85025; 93005; 99283; 99406; J7120; A4216